=== PATIENT | female | born 1985 | race Caucasian/White ===

== ENCOUNTER → 2017-06-08 | Outpatient (CLI) | payer OTHER | LOC: FIMAGING 08:25 | PROVIDERS: ATTEND Obstetrics & Gynecology | DX: O36.62X0 Maternal care for excessive fetal growth, second trimester, not applicable or unspecified (principal); O34.12 Maternal care for benign tumor of corpus uteri, second trimester; D25.9 Leiomyoma of uterus, unspecified; Z3A.20 20 weeks gestation of pregnancy ==

== ENCOUNTER → 2017-07-06 | Outpatient (CLI) | payer OTHER | LOC: FIMAGING 14:15 | PROVIDERS: ATTEND Obstetrics & Gynecology | DX: O34.12 Maternal care for benign tumor of corpus uteri, second trimester (principal); O99.212 Obesity complicating pregnancy, second trimester; D25.9 Leiomyoma of uterus, unspecified; Z3A.24 24 weeks gestation of pregnancy ==

== ENCOUNTER → 2017-07-28 | Outpatient (CLI) | payer OTHER | LOC: FIMAGING 14:08 | PROVIDERS: ATTEND Obstetrics & Gynecology | DX: O34.13 Maternal care for benign tumor of corpus uteri, third trimester (principal); Z3A.29 29 weeks gestation of pregnancy ==